=== PATIENT | male | born 1945 | race Caucasian/White ===

== ENCOUNTER 2021-03-11 16:08 | Outpatient (CLI) | payer MEDICARE, OTHER, SELFPAY ==
[2021-03-11 18:43] LABS: T4 Free Direct 1.18 ng/dL (0.76-1.46); Thyroid Stim Hormone (TSH) 3.51 uIU/mL (0.358-3.74)
[2021-03-11 18:56] LABS: Vitamin B12 > 2000 pg/mL (211-911)
[2021-03-11 22:25] LABS: Hemoglobin A1c 7.9 % (3.8-5.6)
== END 2021-03-11 23:59 | disposition home or self-care (01) ==
PROVIDERS: PCP Internal Medicine Infectious Disease; Referring Provider Internal Medicine Pulmonary Disease; Visit Provider Internal Medicine Pulmonary Disease
DX: G47.10 Hypersomnia, unspecified (principal); E11.8 Type 2 diabetes mellitus with unspecified complications
CPT/HCPCS: 36415; 82607; 83036; 84439; 84443

== ENCOUNTER → 2021-07-08 | Outpatient (CLI) | payer MEDICARE, OTHER, SELFPAY ==
--- NOTE | 2021-07-08 14:45 | RAD_ITS ---
STUDY: XR Chest 2 Views 07/08/2021 2:51 PM REASON FOR EXAM: Male, 75 years old. CHEST PAIN DYSPNEA R91.8 COMPARISON: None TECHNIQUE: XR Chest 2 Views FINDINGS: There is no demonstrated pleural abnormality. There is an elevated right hemidiaphragm. Normal heart size. Normal mediastinum. Normal sultana. Prominent appearing increased interstitial lung markings. Normal visualized pulmonary arteries. There is atherosclerotic calcification of the aortic arch with tortuosity. There are diffuse degenerative changes of the visualized thoracic spine. There is degenerative osteoarthritis of the bilateral shoulders. There is no demonstrated abnormality of the visualized soft tissue structures of the upper abdomen. RAD/Chest PA and Lateral IMPRESSION: There are no acute findings. Electronically Signed: Glynn Rosado MD at 15:06 EDT ,
[2021-07-08 15:34] LABS: Erythrocyte Sedimentation Rate 16 mm/hr (0-20)
[2021-07-08 16:02] LABS: CRP < 2.90 mg/L (0.0-3.0); Rheumatoid Factor < 10.0 IU/mL (<15)
[2021-07-10 15:56] LABS: Angiotensin Convert Enzyme 27 U/L (14-82)
[2021-07-10 15:57] LABS: ANTINUCLEAR ANTIBODIES DIRECT Negative (Negative)
== END | disposition home or self-care (01) ==
PROVIDERS: PCP Internal Medicine Infectious Disease; Referring Provider Internal Medicine Pulmonary Disease; Visit Provider Internal Medicine Pulmonary Disease
DX: R91.8 Other nonspecific abnormal finding of lung field (principal)
CPT/HCPCS: 36415; 71046; 82164; 85652; 86038; 86140; 86431

== ENCOUNTER 2023-07-21 15:01 | Emergency (ER) | payer MEDICARE, OTHER, SELFPAY ==
[2023-07-21 15:02] VITALS: BP 131/65; PULSE 145; RESP 22; TEMP 36.1; O2SAT 99
[2023-07-21 15:45] LABS: Bacteria 0 SEEN /hpf (None Seen); Mucous, Urine 0 SEEN /hpf (<or=2+); Squamous Epithelial Cells - UA 0 SEEN /hpf (0-5); White Blood Cells 0 SEEN /hpf (0-5)
[2023-07-21 15:49] LABS: Color, Urine Red (Yellow); Glucose, Dipstick Normal (Normal); Ketone-Dipstick 15 mg/dl (Negative); Leukocyte Esterase-Dipstick Negative /ul (Negative); Nitrite-Dipstick Negative (Negative); Occult Blood-Urine 250 /ul (Negative); Protein-Dipstick 500 mg/dl (Negative); Urine Bilirubin Dipstick Negative (Negative); Urine Clarity Cloudy (Clear); Urine Urobilinogen Normal (Normal)
--- NOTE | 2023-07-21 15:51 | EDS_ITS ---
HPI History of Present Illness Chief Complaint: Complaint Narrative Narrative: 77-year-old male presenting with urinary retention. He has had trouble with Amado catheter since February this year. He initially saw Dr. Lam at [facility] however he ended up needing to be transferred to [facility] for [place] during his stay. His urologic care was transferred to [facility] Patient states that he followed up with his urologist yesterday and had his Amado catheter removed and then had a cystoscopy. He was given Bactrim 1 time and went home. He has been dribbling overnight. Stopped having urine at about 8 AM this morning. He started to have suprapubic pressure and pain and when he called his urologist he told him to go to the closest emergency room. Patient denies fevers or chills. He denies nausea or vomiting. [facility] Medical History (Updated 07/21/23 @ 22:01 by Jana Kumar) Diabetes mellitus Hyperlipidemia Kidney stone Hypertension Home Medications ?Medication ?Instructions ?Recorded ?Last Taken ?Type aspirin 81 mg tablet,delayed 81 mg PO DAILY 07/21/23 Unknown History release (Adult Aspirin Regimen) colchicine 0.6 mg tablet 0.3 mg PO DAILY 07/21/23 Unknown History duloxetine 30 mg capsule,delayed 30 mg PO DAILY 07/21/23 Unknown History release insulin aspart 14 unit subcut TID 07/21/23 Unknown History (niacinamide)(U-100) 100 unit/mL(3 mL) subcutaneous pen (Fiasp FlexTouch U-100 Insulin) insulin glargine 100 unit/mL (3 30 unit subcut QHS 07/21/23 Unknown History mL) subcutaneous pen (Basaglar KwikPen U-100 Insulin) levothyroxine 88 mcg tablet 88 mcg PO DAILY 07/21/23 Unknown History metoprolol tartrate 25 mg tablet 25 mg PO Q12.TCU 07/21/23 Unknown History rosuvastatin 20 mg tablet 20 mg PO QHS 07/21/23 Unknown History zcofg-aoquourxk-xzibzruu kit ea miscellaneous 07/21/23 Unknown History tamsulosin 0.4 mg capsule 0.4 mg PO QHS 07/21/23 Unknown History Allergy/AdvReac Type Severity Reaction Status Date / Time No Known Allergies Allergy Verified 07/21/23 15:03 Surgical History (Updated 07/21/23 @ 22:01 by Jana Kumar) Hx of CABG Social History Smoking Status: Never smoker ROS ROS ED Constitutional Constitutional ED: Denies chills, fever(s) or sweats Eyes Eyes: Denies blurry vision or change in vision ENT ENT ED: Denies ear pain or sore throat Cardiovascular Cardiovascular: Denies chest pain, palpitations or racing heartbeat Respiratory/Chest Respiratory/Chest: Denies cough, dyspnea or sputum Gastrointestinal Gastrointestinal: Reports abdominal pain; Denies constipation, diarrhea, nausea or vomiting Genitourinary Genitourinary ED: Reports other Details: Urinary retention ; Denies dysuria, hematuria or urinary frequency Musculoskeletal Musculoskeletal: Denies arthralgias, myalgias or neck pain Integumentary Denies abscess, Abrasions or rash Neurologic Neurologic: Denies headache(s), paresthesias or weakness Psychiatric Psychiatric: Denies anxiety, depression, suicidal ideation or suicidal thoughts Endocrine Endocrinology: Denies polydipsia or polyuria EXAM Physical Exam Const Vital Signs: 07/21/23 15:02 07/21/23 17:18 07/21/23 19:00 Temperature 97 F L 96.8 F L Temperature Source Temporal Oral Pulse Rate 145 H 94 103 H Respiratory Rate 22 H 16 18 Respiratory Effort Respiratory Pattern Blood Pressure 131/65 H 139/87 H 148/104 H Blood Pressure Mean 87 104 118 Pulse Ox 99 97 98 Oxygen Delivery Method Room Air Room Air Room Air 07/21/23 20:51 07/21/23 21:11 07/21/23 21:22 Temperature 98.7 F Temperature Source Pulse Rate 92 96 98 Respiratory Rate 12 12 26 H Respiratory Effort Respiratory Pattern Blood Pressure 131/69 H 137/58 H 124/85 H Blood Pressure Mean 89 84 98 Pulse Ox 98 99 99 Oxygen Delivery Method Room Air 07/21/23 21:37 Temperature Temperature Source Pulse Rate Respiratory Rate Respiratory Effort Normal Respiratory Pattern Tachypnea Blood Pressure Blood Pressure Mean Pulse Ox Oxygen Delivery Method Positive well nourished General Appearance ED: NAD HEENT Reports moist mucous membranes normocephalic and atraumatic Resp normal respiratory effort Cardio regular rate and regular rhythm GI GI Narrative: Suprapubic pressure Back/Spine no CVA tenderness Extremity normal to inspection General Extremety ED: Yes edema General Extremity: edema Neuro oriented x3 and CN's II-XII intact bilaterally Sensorium / Orientation: alert Motor Exam: strength 5/5 throughout Psych mental status grossly normal MDM MDM MDM Narrative Medical decision making narrative: Patient presenting with suprapubic pressure and urinary retention since 8 AM. Amado catheter was placed. He feels much better. Initially got 1400 cc out. Now he has blood in the Amado catheter. Will obtain a CBC BMP, urinalysis. Patient declines analgesia now and she feels better after Amado catheter was placed. Patient still feeling improved and his Amado catheter does show some blood and urine mixed. This will be sent for culture. CBC shows a normal white blood cell count 8.9. Hemoglobin 8.1. Platelets are low at 126. Creatinine elevated to 2.20 with no recent lab comparison. GFR 31. Glucose 302 without anion gap. Urinalysis shows 250 occult blood and greater than 100 RBCs without white blood cells, squamous epithelial cells, bacteria. I was able to log into [employer], and I was able to find pertinent medical records available for review to compare to the patient's current lab/imaging/workup. Previous CBC showed a hemoglobin of 9.7 on 07/08/2023 and platelets were 163. Creatinine at that point was 1.45. BUN 33. GFR is was 50. Although the patient has some hematuria in the Amado catheter now after I spoke with them again regarding these findings they state he had not had any blood in his Amado catheter up until they placed the catheter today. I do not believe this explains a drop of nearly 2 points on his hemoglobin. I asked if he had some bloody or black stools and he states it has been rendon. Patient states the only blood thinning medication he takes is aspirin. I will obtain a Hemoccult stool. 6:18 PM. Patient had to have his Amado catheter changed because it clotted off. The 18-gauge that was in his urethra was changed to 24. He has a three-way Amado catheter and now getting irrigated. Occult stool was obtained and sent to the lab. Hemoccult stool came back positive. Patient still having continuous bladder irrigation and still reddish-pink. Is no longer dark red. No more clots of come out. Patient is tolerating this well. He is given IV fluids. Discussed with Dr. Pizarro at [facility] who is the hospitalist who stated that the patient did not have a GI bleed even though he was occult positive because statistically people his age would have occult positive stool. He thought this was all due to the urinary symptoms so I spoke with the urology team Dr. Shi who is the fellow as well as attending. Recommended transfer and they stated that it came to step the patient but they did not have a bed. They asked if we could watch the patient here at the facility although the urologist we have on-call does not see min. Since they do not have beds and the patient still bleeding and he is anemic I recommended ER to ER transfer and we conferenced with the ER doctor Dr. Santos. He was amenable to this seeing the patient in the ER. Patient was consented for transfer. Impression: 1. GI bleed 2. Hematuria 3. Acute blood loss anemia Lab Data Attestation: I reviewed the patient's lab results. Labs: Laboratory Results - last 24 hr 07/21/23 07/21/23 07/21/23 15:37 15:40 20:04 WBC 8.9 RBC 2.79 L Hgb 8.1 L Hct 25.7 L MCV 92.1 MCH 29.0 MCHC 31.5 L RDW Std Deviation 48.4 H RDW Coeff of Kevin 14.2 Plt Count 126 L MPV 10.2 Immature Gran % (Auto) 1.000 H Neut % (Auto) 81.5 H Lymph % (Auto) 6.5 L Ector % (Auto) 10.6 H Eos % (Auto) 0.2 Baso % (Auto) 0.2 Absolute Neuts (auto) 7.2 Absolute Lymphs (auto) 0.58 L Nucleated RBC % 0 Sodium 131 L Potassium 4.8 Chloride 99 Carbon Dioxide 25.0 Anion Gap 7 BUN 57 H Creatinine 2.20 H Est GFR (MDRD) Af Amer 38 L Est GFR (MDRD) Non-Af 31 L BUN/Creatinine Ratio 25.9 H Glucose 302 H Calcium 9.6 Urine Color Red Urine Clarity Cloudy Urine pH 7.0 Ur Specific [place] 1.010 Urine Protein 500 H Urine Glucose (UA) Normal Urine Ketones 15 H Urine Occult Blood 250 H Urine Nitrite Negative Urine Bilirubin Negative Urine Urobilinogen Normal Ur Leukocyte Esterase Negative Urine RBC > 100 SEEN Urine WBC 0 SEEN Ur Squamous Epith Cells 0 SEEN Urine Bacteria 0 SEEN Urine Mucus 0 SEEN POC Glucose 267 H Discharge Plan Triage Chief Complaint: Complaint ED Provider: Leno Montenegro Dx/Rx/DC Orders Prescriptions: No Action aspirin [Adult Aspirin Regimen] 81 mg tablet,delayed release (DR/EC) 81 mg PO DAILY levothyroxine 88 mcg tablet 88 mcg PO DAILY colchicine 0.6 mg tablet 0.3 mg PO DAILY tamsulosin 0.4 mg capsule 0.4 mg PO QHS rosuvastatin 20 mg tablet 20 mg PO QHS metoprolol tartrate 25 mg tablet 25 mg PO Q12.TCU Fiasp FlexTouch U-100 Insulin 100 unit/mL (3 mL) insulin pen 14 unit subcut TID Patient Comments: breakfast, lunch and dinner insulin glargine [Basaglar KwikPen U-100 Insulin] 100 unit/mL (3 mL) insulin pen 30 unit subcut QHS duloxetine 30 mg capsule,delayed release(DR/EC) 30 mg PO DAILY ytbfg-oqzcxuobq-icikflmh Kit miscellaneous Primary Care Provider: Андрей Maier Referrals: Андрей Maier MD [Primary Care Provider] - Print Language: Upper Sorbian Disposition Disposition: Acute Care Hospital Discharge Location: [facility] Discharge Date/Time: 07/21/23 22:20
[2023-07-21 15:54] LABS: Absolute Lymphocyte Count 0.58 X10^3/uL (0.83-4.51); Absolute Neutrophil Count 7.2 X10^3/uL (2.0-7.7); Basophil# 0.02 X10^3/uL; Basophil% 0.2 % (0-1); Eosinophil# 0.02 X10^3/uL; Eosinophils% 0.2 % (0-5); Hematocrit 25.7 % (40-54); Hemoglobin 8.1 g/dL (13.0-16.5); Lymphocyte # 0.58 X10^3/ul (0.83-4.51); Lymphocyte % 6.5 % (19-41); Mean Corp Hgb Conc 31.5 g/dL (32-36); Mean Corpuscular Volume 92.1 fL (80-94); Mean Platelet Vol. 10.2 fl (6.2-12.0); Monocyte# 0.94 X10^3/uL; Monocyte% 10.6 % (0-10); NRBC Flagged by Analyzer 0 % (0-5); Neutrophil # 7.22 X10^3/uL (2.7-7.7); Neutrophil % 81.5 % (47-70); POSITIVE DIFFERENTIAL YES; Platelet Count 126 K/mm3 (150-450); RBC Distribution Width CV 14.2 % (11.6-14.6); RBC Distribution Width SD 48.4 fl (35.1-43.9); Red Blood Count 2.79 M/mm3 (4.6-6.2); White Blood Count 8.9 K/mm3 (4.4-11.0)
[2023-07-21 15:56] LABS: Red Blood Cells-Urine > 100 SEEN /hpf (0-5)
[2023-07-21 16:09] LABS: Anion Gap 7 (5-15); BUN 57 mg/dL (7-18); BUN/Creat Ratio 25.9 RATIO (10-20); Calcium,Total 9.6 mg/dL (8.5-10.1); Chloride 99 mmol/L (98-107); EST Glomerular Filtration Rate 31 mL/min (>60); Est Glom Filt Rate - Afr Amer 38 mL/min (>60); Glucose 302 mg/dL (74-106); Potassium 4.8 mmol/L (3.5-5.1); Sodium Level 131 mmol/L (136-145)
[2023-07-21 17:18] VITALS: BP 139/87; PULSE 94; RESP 16; TEMP 36; O2SAT 97
--- NOTE | 2023-07-21 18:15 | ED.RN ---
This RN called to room, pt complains of blood leaking around catheter from penis. [place] no draining. This RN attempted manual irrigation without success 18f holland removed and replaced with 24f [address] Large amount of clots removed with manual irrigation until holland draining freely with continuous bladder irrigation. aware.
[2023-07-21 19:00] VITALS: BP 148/104; PULSE 103; RESP 18; O2SAT 98
[2023-07-21] MEDS: HYDROcodone Bitartrate/Apap 5/325 Tablet PO (20:06)
[2023-07-21 20:45] LABS: Bedside Glucose 267 mg/dL (74-106)
[2023-07-21] MEDS: 0.9% Normal Saline (1000mL) 1,000 ML 100 ML IV (20:45)
[2023-07-21 20:51] VITALS: BP 131/69; PULSE 92; RESP 12; O2SAT 98
[2023-07-21 21:11] VITALS: BP 137/58; PULSE 96; RESP 12; O2SAT 99
[2023-07-21 21:22] VITALS: BP 124/85; PULSE 98; RESP 26; TEMP 37.1; O2SAT 99
--- NOTE | 2023-07-21 21:35 | ED.RN ---
I called report to [facility], manager pediatric Ben at this time.
--- NOTE | 2023-07-21 22:17 | ED.RN ---
Called CCM about transfer team leaving at this time.
== END 2023-07-21 22:20 | disposition short-term general hospital (02) ==
PROVIDERS: Emergency Provider Student in an Organized Health Care Education/Training Program; PCP Internal Medicine Infectious Disease; Visit Provider Student in an Organized Health Care Education/Training Program
DX: R33.9 Retention of urine, unspecified (principal); E11.9 Type 2 diabetes mellitus without complications; Z79.4 Long term (current) use of insulin; K92.2 Gastrointestinal hemorrhage, unspecified; D62 Acute posthemorrhagic anemia; R31.9 Hematuria, unspecified; E78.5 Hyperlipidemia, unspecified; I10 Essential (primary) hypertension; Z79.82 Long term (current) use of aspirin; Z79.899 Other long term (current) drug therapy; Z95.1 Presence of aortocoronary bypass graft
CPT/HCPCS: 80048; 81001; 82274; 82962; 85025; 87077; 87086; 87088; 87186; 96360; 96361; 99285; J7030; A4216